=== PATIENT | male | born 1970 | race Caucasian/White ===

== ENCOUNTER 2020-04-20 19:49 | Inpatient (IN) | payer OTHER ==
[~2020-04-20] VITALS: Ht 170.2 cm; Wt 83.9 kg
[~2020-04-20 19:49] MED LIST: AMOXICILLIN875 MG PO; DOXYCYCLINE 10100 MG PO; HYDROCODONE-AP1 EAC6 PO; NORCO 5-325 TA1 EACH PO; TYLENOL325 MG PO
[2020-04-20 19:51] VITALS: BP 143/88
[2020-04-20 20:19] LABS: ABSOLUTE NEUTROPHILS 5.8 thou/uL (1.4-8.2); LYMPHOCYTES 33.3 % (24.0-44.0)
[2020-04-20 20:22] LABS: BASOPHILS 0.2 % (0.0-2.0); EOSINOPHILS 1.7 % (0.0-3.0); HEMATOCRIT 47.2 % (42.0-52.0); HEMOGLOBIN 15.7 gm/dL (14.0-18.0); MCH 30.5 pg (26.0-34.0); MCHC 33.3 g/dL (28.0-37.0); MCV 91.7 fL (80.0-100.0); MONOCYTES 7.6 % (1.0-8.0); PLATELET COUNT 235 thou/uL (150-400); POLYS 57.2 % (36.0-66.0); RBC 5.15 mil/uL (4.50-6.00); RDW 13.5 % (10.5-14.5); WBC 10.2 thou/uL (4.0-11.0)
[2020-04-20 20:26] LABS: ANION GAP 11 mmol/L (7-16); BUN 11 mg/dL (7-18); CALCIUM 9.2 mg/dL (8.5-10.1); CHLORIDE 101 mmol/L (98-107); CO2 26 mmol/L (21-32); CREATININE 1.4 mg/dL (0.7-1.3); GLUCOSE 187 mg/dL (74-106); POTASSIUM 3.3 mmol/L (3.5-5.1); SODIUM 138 mmol/L (136-145)
[2020-04-20 20:36] LABS: ALBUMIN 4.2 g/dL (3.4-5.0); SGOT 21 U/L (15-37); SGPT 36 U/L (16-63); TOTAL BILIRUBIN 0.4 mg/dL (0.2-1.0); TOTAL PROTEIN 7.8 g/dL (6.4-8.2); TROPONIN-I <0.06 ng/mL (<0.06)
[2020-04-20 20:42] LABS: PROTIME 10.1 Seconds (9.3-11.4)
[2020-04-20 20:48] LABS: D-DIMER < 0.19 ug/mLFEU (0.19-0.50)
[2020-04-21] VITALS (12 sets, daily range): BP systolic 97–121; BP diastolic 59–96
[2020-04-21 06:52] LABS: HEMATOCRIT 43.5 % (42.0-52.0); HEMOGLOBIN 14.2 gm/dL (14.0-18.0); MCH 29.9 pg (26.0-34.0); MCHC 32.7 g/dL (28.0-37.0); MCV 91.5 fL (80.0-100.0); RBC 4.75 mil/uL (4.50-6.00); RDW 13.7 % (10.5-14.5); WBC 11.2 thou/uL (4.0-11.0)
[2020-04-21 06:59] LABS: CALCIUM 8.8 mg/dL (8.5-10.1); CREATININE 1.3 mg/dL (0.7-1.3); POTASSIUM 3.3 mmol/L (3.5-5.1)
[2020-04-21 07:10] LABS: TROPONIN-I 19.47 ng/mL (<0.06)
--- NOTE | 2020-04-21 10:19 | EKG ---
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 : 1970 Requested By: Carloz Etienne Order Number: [id number] MD: Dalton Nicholas Measurements Intervals North Rate: 58 P: 20 IA: 138 QRS: 52 QRSD: 104 T: 58 QT: 424 QTc: 417 Interpretive Statements Sinus rhythm Abnormal R-wave progression, early transition Compared to ECG 04/20/2020 19:49:33 Myocardial infarct finding no longer present ST (T wave) deviation no longer present Electronically Signed On 04-21-2020 10:19:36 GRAPHIC DESIGNER by Dalton Nicholas [email or web address] <ELECTRONICALLY SIGNED> By: Dalton Nicholas MD 04/21/20 1019 2344 2344 Dalton Nicholas MD /EPI
--- NOTE | 2020-04-21 10:20 | EKG ---
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 : 1970 Requested By: Carloz Etienne Order Number: [id number] MD: Dalton Nicholas Measurements Intervals [place] Rate: 84 P: 71 CO: 169 QRS: 63 QRSD: 99 T: 62 QT: 371 QTc: 439 Interpretive Statements Sinus rhythm Probable left atrial enlargement Compared to ECG 08/21/2016 19:34:16 Myocardial infarct finding now present ST (T wave) deviation now present Electronically Signed On 04-21-2020 10:20:41 HANDKERCHIEF SAMPLE CLERK by Dalton Nicholas [email or web address] <ELECTRONICALLY SIGNED> By: Dalton Nicholas MD [id number] Dalton Nicholas MD /SURINDER
--- NOTE | 2020-04-21 12:35 | 2DMMODE ---
[facility] [place] [address] 2 D/M-MODE ECHOCARDIOGRAM Name: JUNIOR WALLACE Room #: 170-2 ADM IN M.R.#: [id number] Admission: 04/20/20 Attend Phys: Darian Estrada MD Discharge: Date of : 72 Report #: [id number] THIS REPORT FOR: cc: FAM - No family physician/PCP FAM - No family physician/PCP William Lemus MD [facility] ~ APPROVED REPORT Study performed: 04/21/2020 08:53:23 EXAM: Comprehensive 2D, Doppler, and color-flow Echocardiogram Patient Location: ER Status: routine BSA: 1.86 HR: 64 bpm BP: 104/52 mmHg Rhythm: NSR Other Information Study Quality: Good Indications Chest Pain 2D Dimensions RVDd: 41.78 mm IVSd: 9.39 (7-11mm) LVOT Diam: 23.38 (18-24mm) LVDd: 43.93 mm PWd: 9.42 (7-11mm) Ascending Ao: 32.41 (22-36mm) LVDs: 20.05 (25-40mm) Left Atrium: 40.98 (27-40mm) Aortic Root: 30.39 mm LV Single Plane 4CH: 54.79 % LV Single Plane 2CH: 63.18 % Volumes Left Atrial Volume (Systole) Single Plane 4CH: 17.59 mL Single Plane 2CH: 19.44 mL Aortic Valve AoV Peak Jad.: 1.06 m/s AO Peak Gr.: 4.49 mmHg LVOT Max P.07 mmHg AO Mean Gr.: 2.65 mmHg LVOT Mean P.48 mmHg [facility] [address] [place] [address] 2 D/M-MODE ECHOCARDIOGRAM Name: JUNIOR WALLACE [place] Room #: 170-2 [facility] IN [facility]#: [id number] Admission: 04/20/20 Attend Phys: Darian Estrada MD Discharge: Date of : 72 Report #: [id number] AO V2 Mean: 0.78 m/s LVOT Max V: 0.88 m/s AO V2 VTI: 20.64 cm LVOT Mean V: 0.56 m/s RAPHAEL (VTI): 4.01 cm2 LVOT V1 VTI: 19.30 cm RAPHAEL Vmax: 3.55 cm2 SV (LVOT): 82.82 mL Mitral Valve E/A Ratio: 1.3 MV Decel. Time: 195.90 ms MV E Max Jad.: 1.02 m/s MV A Jad.: 0.79 m/s MV PHT: 56.81 ms Pulmonary Valve PV Peak Jad.: 0.95 m/s PV Peak Gr.: 3.61 mmHg CA End Vmax: 0.96 m/s Pulmonary Vein P Vein S: 0.71 m/s P Vein A: 0.35 m/s P Vein D: 0.59 m/s P Vein A Dur.: 110.7 msec P Vein S/D Ratio: 1.20 Tricuspid Valve TR Peak Jad.: 2.71 m/s TR Peak Gr.: 29.47 mmHg Left Ventricle The left ventricle is normal size. There is normal left ventricular wall thickness. The left ventricular systolic function is normal. LVEF is 50%. Lateral wall hypokinesis The left ventricular diastolic function is normal. Right Ventricle The right ventricle is normal size. There is normal right ventricular wall thickness. The right ventricular systolic function is normal. Atria The left atrium size is normal. The right atrium size is normal. Aortic Valve The aortic valve is normal in structure. No aortic regurgitation is present. There is no aortic valvular stenosis. Mitral Valve [facility] [address] [place] [address] 2 D/M-MODE ECHOCARDIOGRAM Name: JUNIOR WALLACE Room #: 170-2 ADM IN [facility]#: [id number] Admission: 04/20/20 Attend Phys: Darian Estrada MD Discharge: Date of : 72 Report #: [id number] The mitral valve is normal in structure. Trace mitral regurgitation. No evidence of mitral valve stenosis. Tricuspid Valve The tricuspid valve is normal in structure. Trace to mild tricuspid regurgitation. Estimated PAP 30 mmHg. Pulmonic Valve The pulmonary valve is normal in structure. Trace pulmonic regurgitation. Great Vessels The aortic root is normal in size. The ascending aorta is normal in size. IVC is normal in size and collapses >50% with inspiration. The pulmonary artery is normal. Pericardium There is no pericardial effusion. <Conclusion> The left ventricular systolic function is normal. LVEF is 50%. Lateral wall hypokinesis The aortic valve is normal in structure. No aortic regurgitation or stenosis The mitral valve is normal in structure. Trace mitral regurgitation. Trace to mild tricuspid regurgitation. Estimated pulmonary artery pressure of 30 mmHg. There is no pericardial effusion. <ELECTRONICALLY SIGNED> By: William Lemus MD, FACC 04/21/20 1235 1235 1235 William Lemus MD, FACC /INF
--- NOTE | 2020-04-21 12:51 | CATHLAB ---
[facility] [place] [address] INVASIVE PROCEDURE REPORT Name: JUNIOR WALLACE Room #: 214-P ADM IN M.R.#: [id number] Admission: 04/20/20 Attend Phys: Darian Estrada MD Discharge: Date of : 72 Report #: [id number] THIS REPORT FOR: cc: FAM - No family physician/PCP FAM - No family physician/PCP William Lemus MD [facility] ~ APPROVED REPORT Study performed: 04/21/2020 11:17:44 Patient Details Patient Status: In-Patient Room #: The patient is a 50 year-old male Event Personnel William Lemus Toolsmith, Vanda Santos RN RN, Kassidy Ware Monitor, Bethanie Meyers RTR, SENIOR PHARMACY TECHNICIAN Scrub Procedures Performed Art Access - R femoral artery* 75466 Initial Mod Sed Same Phys/QHP Gr5y 721073 45049 Mod Sed Same Phys/QHP Ea 011877 Left Heart Cath w/or w/o Coronaries [id number] [facility] DI Revasc AMI Total/Sub Single CIRC C9606 AMIREVSING Hemostasis w/ Mynx Indication STEMI Procedure Narrative The patient was brought emergently to the Cardiac Catheterization Laboratory and was prepped and draped in a sterile manner. The Right Groin^ was infiltrated with 1% Lidocaine subcutaneous anesthesia. A PINNACLE 6FR Sheath #[id number] sheath was inserted into the RFA^. Coronary angiography was performed using coronary diagnostic catheters. The right coronary system was accessed and visualized with a JR 4 catheter. The left coronary system was accessed and visualized with a JL 4 catheter. The left ventricle was accessed and visualized with a Pigtail catheter. Left ventricular/Aortic Valve gradient assessed via catheter pullback. Left ventriculogram was performed in GIORDANO projection. Closure device was deployed with a 6 Fr Mynx. The patient tolerated the procedure well and there were no complications associated with the procedure. There was no hematoma. Intraoperative Conscious Sedation Sedation start time: 11:31 Case end Time: [facility] [address] [place] [address] INVASIVE PROCEDURE REPORT Name: MADISONJUNIOR Room #: 214-P [facility] IN [facility]#: [id number] Admission: 04/20/20 Attend Phys: Darina Estrada MD Discharge: Date of : 72 Report #: [id number] 12:18 Fentanyl 50 mcg Versed 1 mg Fluoro Time: 5.14 minutes Dose: DAP 5844.00 cGycm2 768 mGy Contrast Type and Amount: Visipaque 205 ml Coronary Angiography The patient's coronary anatomy is right dominant. Diagnostic Cath Left Main Normal left main LAD Ectatic proximal LAD with scattered 20-30% plaquing. Distal 65% LAD stenosis, small vessel beyond this Diagonal 1 Large first diagonal branch with mild proximal plaquing Circumflex Large but nondominant circumflex. 85% mid circumflex beyond the second OM occlusion OM1 Mild ostial OM1 plaquing, very small vessel OM2 Occluded second marginal branch. PIOTR 0 flow Right Coronary Normal right coronary. Dominant R PDA Normal posterior descending RPLV Large, normal posterior lateral branch Left Ventriculography The left ventricle is normal in size with normal contractility. The left ventricular ejection fraction is estimated to be 50-55%. Left ventricular wall motion abnormalities are present. There is no mitral insufficiency. Mild distal inferior wall hypokinesis Hemodynamics The aortic pressure is 137/87 mmHg with a mean of 106 mmHg. The left ventricular pressure is 137/8 mmHg with a mean of mmHg. The left ventricular end diastolic pressure is 20 mmHg. PCI Technique Lesion Anticoagulation was achieved with Heparin, Integrilin. Patient was preloaded with Effient. Percutaneous coronary intervention was performed on the second obtuse marginal branch segment. The lesion stenosis prior to intervention was 100% with PIOTR 0 flow. A LAUNCHER 6FR EBU 3.5 #[id number] Guide Catheter was used to engage the Left main ostium. A Luge Wire .014 x 182CM #[id number] Interventional Guidewire was used to cross the lesion. BALLOON DILATION [facility] [address] [place] [address] INVASIVE PROCEDURE REPORT Name: MADISONJUNIOR Room #: 214-P [facility] IN M.R.#: [id number] Admission: 04/20/20 Attend Phys: Darian Estrada MD Discharge: Date of : 72 Report #: [id number] A Balloon catheter Euphora RX 2.5 x 15 #[id number] was inserted and inflated up to 6.00atm for 30seconds. Additional Inflation: 8.00atm for 31seconds. STENT DEPLOYMENT A drug-eluting stent RESOLUTE MICHELLE RX 2.5 X 15 #[id number] was inserted and inflated up to 16.00atm for 32seconds. Repeat angiography revealed the following post-stent deployment results: 0% residual stenosis with PIOTR-3 flow restored. POST STENT DEPLOYMENT BALLOON DILATION A Balloon catheter TREK NC RX 2.5 X 15 #[id number] was inserted and inflated up to 18.00atm for 33seconds. Final angiography reveals 0 % stenosis with PIOTR 3 flow. PCI Technique Lesion 2 Percutaneous Coronary Intervention was performed on the mid circumflex artery segment, jailed by the OM 2 stent. Patient was preloaded with Effient. The lesion stenosis prior to intervention was 99% with PIOTR 2 flow. A LAUNCHER 6FR EBU 3.5 #[id number] Guide Catheter was used to engage the left main ostium. A Luge Wire .014 x 182CM #[id number] Interventional Guidewire was used to cross the lesion. Balloon Dilation A Balloon catheter Euphora RX 2.25 x 10 #[id number] was inserted and inflated up to 12.00atm for 63seconds. Repeat angiography revealed the following post-dilatation results: 0% residual stenosis with PIOTR-3 flow restored. Conclusion 1. Normal global ejection fraction with minimal distal inferior wall hypokinesis. EF 50-55% 2. Normal left main 3. Moderate proximal LAD ectasia, mild plaquing. 65% distal LAD stenosis, small vessel beyond this 4. Large but nondominant circumflex. Occluded second marginal branch successfully stented with a 2.5 x 15 Resolute medicated stent 5. Severe mid circumflex stenosis, jailed by the OM 2 stent, successfully angioplastied. 0% residual stenosis 6. Dominant right coronary, angiographically normal Recommendations [facility] [address] [place] [address] INVASIVE PROCEDURE REPORT Name: JUNIOR WALLACE Room #: 214-P [facility] IN [facility].#: [id number] Admission: 04/20/20 Attend Phys: Darian Estrada MD Discharge: Date of : 72 Report #: [id number] Smoking Cessation [facility] <ELECTRONICALLY SIGNED> By: William Lemus MD, FACC 04/21/201250 125 125 William Lemus MD, FACC /INF
--- NOTE | 2020-04-21 17:49 | NUR ---
PT RECEIVED FROM TUBE INSPECTOR. R GROIN SITE WITH MYNX. DRESSING CLEAN, DRY, AND INTACT. PT STATES PAIN IS HEADACHE AND BACKACHE AT 04/29. VSS. CONTINUE TO ASSESS DRESSING SITE. PT IS PLEASANT. FALL PRECAUTIONS IN PLACE. NO CONCERNS AT THIS TIME.
[2020-04-22] VITALS (7 sets, daily range): BP systolic 91–150; BP diastolic 47–85
[2020-04-22 02:05] LABS: GLYCOHEMOGLOBIN (HGB A1C) 5.8 % (4.8-5.6)
[2020-04-22 04:16] LABS: ALBUMIN 3.7 g/dL (3.4-5.0); ANION GAP 12 mmol/L (7-16); BUN 11 mg/dL (7-18); CHLORIDE 101 mmol/L (98-107); CHOLESTEROL 183 mg/dL (<200); CO2 22 mmol/L (21-32); CREATININE 1.2 mg/dL (0.7-1.3); GLUCOSE 128 mg/dL (74-106); HDL CHOLESTEROL 51 mg/dL (>40); LDL CHOLESTEROL 108 mg/dL (<100); POTASSIUM 4.1 mmol/L (3.5-5.1); SGOT 147 U/L (15-37); SGPT 59 U/L (30-65); SODIUM 135 mmol/L (136-145); TC:HDL 3.6 Ratio (Not establshd); TOTAL BILIRUBIN 0.8 mg/dL (0.2-1.0); TOTAL PROTEIN 7.6 g/dL (6.4-8.2); TRIGLYCERIDE 122 mg/dL (<150); VLDL 24 mg/dL (<40)
[2020-04-22 04:26] LABS: HEMATOCRIT 45.7 % (42.0-52.0); HEMOGLOBIN 15.2 gm/dL (14.0-18.0); MCH 30.3 pg (26.0-34.0); MCHC 33.2 g/dL (28.0-37.0); MCV 91.3 fL (80.0-100.0); RBC 5.01 mil/uL (4.50-6.00); RDW 13.4 % (10.5-14.5); WBC 12.1 thou/uL (4.0-11.0)
[2020-04-22 04:32] LABS: SERUM ASSESSMENT Clear
[2020-04-22 04:33] LABS: TROPONIN-I 27.26 ng/mL (<0.06)
--- NOTE | 2020-04-22 05:01 | NUR ---
ASSESSMENTS CHARTED, MEDS CHARTED GIVEN. PATIENT WAS IN WELT TREATER DURING DAY, RECEIVED STENT TO OM. OFF BEDREST AT START OF SHIFT, RIGHT GROIN ACCESS SITE IS INTACT, DRY AND SOFT. PATIENT DENIES PAIN. UP AT JEFF IN ROOM. FALL PRECAUTIONS IN PLACE DURING SHIFT.
[2020-04-22] MEDS ORDERED: EFFIENT10 MG PO (09:01)
[2020-04-22] MEDS ORDERED: LIPITOR40 MG PO (09:01)
[2020-04-22] MEDS ORDERED: METFORMIN HCL500 M3 PO (09:02)
[2020-04-22] MEDS ORDERED: ASPIR 8181 MG PO (09:02)
[2020-04-22] MEDS ORDERED: BENAZEPRIL HCL5 MG PO (09:02)
--- NOTE | 2020-04-22 10:39 | EKG ---
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: : 1970 Requested By: William Lemus Order Number: [id number] MD: Dalton Nicholas Measurements Intervals Wheeler Rate: 77 P: 32 TN: 118 QRS: 105 QRSD: 93 T: 56 QT: 363 QTc: 411 Interpretive Statements Sinus rhythm Borderline short TN interval Abnormal R-wave progression, early transition Inferior infarct, old Compared to ECG 04/20/2020 23:44:03 Myocardial infarct finding now present Electronically Signed On 04-22-2020 10:39:39 CRITICAL CARE PHYSICIAN by Dalton Nicholas [email or web address] <ELECTRONICALLY SIGNED> By: Dalton Nicholas MD 04/22/20 1039 1041 104 Dalton Nicholas MD /EPI
--- NOTE | 2020-04-22 18:55 | NUR ---
PT IS ALERT AND ORIENTED, PLEASANT. PT IS UP AD JEFF TO BATHROOM. PT STATED HAD SOME MUSCLE STIFFNESS, BUT DENIES ANY PAIN. PLACES BILAT CALF SCDS. PT R GROIN SITE CLEAN DRY AND INTACT. GIRLFRIEND VISIT IN EVENING. NO CONCERNS AT THIS TIME.
[2020-04-23 04:45] VITALS: BP 98/66
--- NOTE | 2020-04-23 07:07 | NUR ---
PATIENTS CARES WEE ASSUMED AT SHIFT CHANGE. PATIENT WAS ASSESSED AND MEDS WERE PASSED. 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 HAS D/C THIS PATIENT AT THIS TIME. PATIENT HAD NO REQUEST AND SLEPT MOST OF THIS SHIFT.
[2020-04-23 08:00] VITALS: BP 104/70
[2020-04-23 08:54] VITALS: BP 98/66
[2020-04-23] MEDS ORDERED: METOPROLOL SUCC25 M1 PO (08:59)
[2020-04-23 09:02] VITALS: BP 104/70
--- NOTE | 2020-04-25 14:14 | HC ---
[facility] [place] [address] CONSULTATION Name: JUNIOR WALLACE Room #: 214-P [facility] IN .R.#: [id number] Admission: 04/20/20 Attend Phys: Darian Estrada MD Discharge: 04/23/20 Date of : 72 Report #: [id number] THIS REPORT FOR: cc: ROSA - No family physician/PCP FAM - No family physician/PCP Dalton Nicholas MD ~ DATE OF SERVICE: 04/21/2020 CARDIOLOGY CONSULTATION REASON FOR CONSULTATION: Chest pain. HISTORY OF PRESENT ILLNESS: The patient 50-year-old male with history of tobacco abuse and a strong family history of premature CAD, who presents to the Emergency Room with chest pain, heaviness like someone sitting on his chest with radiation to the left arm, which is new onset. This has since improved since initial admission. He still has some mild chest discomfort. He denies any exertional dyspnea. He denies PND or orthopnea. He denies presyncope or syncope. A 12-point review of systems was performed and was negative other than what I mentioned above. PAST MEDICAL HISTORY: As above. SOCIAL HISTORY: He does smoke. FAMILY HISTORY: Premature CAD in his father who had an SD at around 45 years of age. ALLERGIES: None. MEDICATIONS: Currently on Lipitor, famotidine, aspirin, potassium, heparin drip, morphine. PHYSICAL EXAMINATION: VITAL SIGNS: Temperature afebrile, pulse 63, respirations 13, blood pressure 103/54, sats 96%. GENERAL: He is in no acute distress, alert and oriented x 3. HEENT: Oropharynx clear. Mucous membranes moist. NECK: Supple. No thyromegaly or carotid bruits. HEART: Regular rate and rhythm with no murmurs, rubs or gallops. LUNGS: Clear to auscultation bilaterally. ABDOMEN: Soft, nontender, nondistended with no hepatosplenomegaly. EXTREMITIES: There is no clubbing, cyanosis, or edema and his femoral, dorsalis [facility] [address] [place] [address] CONSULTATION Name: MADISONJUNIOR Room #: 214-[facility]#: [id number] Admission: 04/20/20 Attend Phys: Darian Estrada MD Discharge: 04/23/20 Date of : 72 Report #: [id number] pedis and posterior tibialis pulses are 2+ throughout. His cranial nerves 2-12 are intact. PSYCHIATRIC: He is appropriate. LABORATORY DATA: White count 11, hemoglobin 14, platelets 226. Sodium 138, potassium 3.3, creatinine 1.3. Troponin max is 19.4. His 12-lead EKGs have been reviewed and show some anterior ischemic changes. Chest x-ray shows no acute process. ASSESSMENT: Non-ST segment elevation myocardial infarction. PLAN: The patient is currently improved. His troponin is elevated. I have discussed with the patient that he will require an invasive cardiac catheterization to define his anatomy and to intervene as required. I will discuss timing of this procedure with early childhood teacher assistant. He will need an echocardiogram as well. <ELECTRONICALLY SIGNED> By: Dalton Nicholas MD 04/25/20 1414 1041 1202 Dalton Nicholas MD /nt
== END 2020-04-23 11:23 | disposition home or self-care (01) | DRG 247 ==
LOC: ER 19:49 → EROBS 21:38 → 2N 04-21 11:57
PROVIDERS: Emergency Medicine; Internal Medicine; Nurse Practitioner Family; ADMIT Hospitalist; ATTEND Hospitalist
PROC: 3E033PZ Introduction of Platelet Inhibitor into Peripheral Vein, Percutaneous Approach (ICD-10-PCS; principal; 2020-04-21)
PROC: 4A023N7 Measurement of Cardiac Sampling and Pressure, Left Heart, Percutaneous Approach (ICD-10-PCS; principal; 2020-04-21)
PROC: B211YZZ Fluoroscopy of Multiple Coronary Arteries using Other Contrast (ICD-10-PCS; principal; 2020-04-21)
PROC: B215YZZ Fluoroscopy of Left Heart using Other Contrast (ICD-10-PCS; principal; 2020-04-21)
PROC: 027034Z Dilation of Coronary Artery, One Artery with Drug-eluting Intraluminal Device, Percutaneous Approach (ICD-10-PCS; principal; 2020-04-21)
DX: I21.4 Non-ST elevation (NSTEMI) myocardial infarction (principal); F17.290 Nicotine dependence, other tobacco product, uncomplicated; E74.39 Other disorders of intestinal carbohydrate absorption; E78.5 Hyperlipidemia, unspecified; I24.9 Acute ischemic heart disease, unspecified; I25.5 Ischemic cardiomyopathy; Z82.49 Family history of ischemic heart disease and other diseases of the circulatory system; Z79.899 Other long term (current) drug therapy; Z71.6 Tobacco abuse counseling
CPT/HCPCS: 10081